=== PATIENT | female | born 1980 | race Caucasian/White ===

== ENCOUNTER 2016-05-10 21:20 | Inpatient (IN) | payer OTHER ==
[2016-05-10] MEDS ORDERED: DINOPROSTONE 10 MG VAGINAL SUPPOSITORY VG ONE (21:46)
[2016-05-10] MEDS ORDERED: ONDANSETRON 4 MG/2 ML VIAL IVPB PRN (22:03)
[2016-05-10] MEDS ORDERED: ACETAMINOPHEN 325 MG TABLET (FP) PO ONE (22:09)
[2016-05-10] MEDS: LACTATED RINGERS SOLUTION 1,000 ML IV SCH (22:15)
--- NOTE | 2016-05-10 22:16 | HP ---
Past Medical History - Admission History of Present Illness: 35 yo female at 38 weeks admitted for labor induction due to pregestational diabetes and gestational hypertension. upon admission patient found to have nausea, vomiting and tachycardia. temp is 99.5 History Source: Patient, Medical Record Limitations to Obtaining History: Other - Past Medical History Cardiovascular: Yes: HTN (gestational) ...: 7 ...EDC by Ketan: 05/24/16 Endocrine: Yes: Diabetes Mellitus - Past Surgical History Hx Myomectomy: No Hx Transabdominal Cerclage: No - Smoking History Smoking history: Never smoked Aproximately how many cigarettes per day: 0 - Alcohol/Substance Use Hx Alcohol Use: No Home Medications - Allergies Allergies/Adverse Reactions: Allergies Allergy/AdvReac Type Severity Reaction Status Date / Time No Known Allergies Allergy Verified 05/11/16 06:48 - Home Medications Home Medications: Ambulatory Orders Insulin Aspart [Novolog] See Protocol SQ AC 03/31/16 Insulin Detemir [Levemir Flextouch] 18 units SQ HS 03/31/16 Pnv95/Ferrous Fumarate/FA [ Vitamin Tablet] 1 each PO DAILY 03/31/16 Review of Systems - Review of Systems Constitutional: reports: Chills, Loss of Appetite, Weakness. denies: Fever Eyes: denies: Blurred Vision, Double Vision Gastrointestinal: reports: Nausea, Vomiting. denies: Abdominal Pain Genitourinary: reports: No Symptoms Endocrine: reports: No Symptoms Hematology/Lymphatic: reports: No Symptoms Psychiatric: reports: No Symptoms Physical Exam - Maternity Constitutional: Yes: Well Nourished, Calm Eyes: Yes: Conjunctiva Clear, EOM Intact HENT: Yes: Atraumatic, Normocephalic Neck: Yes: Supple, Trachea Midline Cardiovascular: Yes: Regular Rate and Rhythm Lungs: Clear to auscultation - Abdominal Exam/OB Number of Fetuses: Single Presentation: Vertex Contractions: No Category: I Decelerations: None - Physical Exam Psychiatric: Yes: Alert, Oriented Problem List - Problems (1) Diabetes in Code(s): O24.919 - UNSP DIABETES MELLITUS IN , UNSPECIFIED TRIMESTER (2) Gestational hypertension Code(s): O13.9 - GESTATIONAL HTN W/O SIGNIFICANT PROTEINURIA, UNSP TRIMESTER (3) Nausea & vomiting Code(s): R11.2 - NAUSEA WITH VOMITING, UNSPECIFIED (4) Tachycardia Code(s): R00.0 - TACHYCARDIA, UNSPECIFIED Assessment/Plan admit to l&d start IV fluids PO tylenol regular diabetic diet - check bgm ac/hs if maternal heart rate normalizes and pt afebrile, to start labor induction with cervidil gbs positive
[2016-05-10 22:29] LABS: BASOPHIL 0.7 % (0-2.0); EOSINOPHIL 0.2 % (0-4.5); MCH 25.7 pg (25.7-33.7); MCHC 33.2 g/dl (32.0-36.0); MEAN CELL VOLUME 77.5 fl (80-96); MEAN PLT VOLUME 10.7 fl (7.5-11.1); NEUTROPHILS 72.6 % (42.8-82.8); PLATELET COUNT 157 K/MM3 (134-434); RDW 15.1 % (11.6-15.6); WHITE BLOOD COUNT 6.8 K/mm3 (4.0-10.0)
[2016-05-10 22:32] VITALS: BMI 43.6
[2016-05-10 22:41] LABS: INR 1.04 (0.82-1.09); PROTHROMBIN TIME (PATIENT) 11.4 SEC (9.98-11.88)
[2016-05-10 22:44] LABS: ACTIVATED PTT 28.1 SECONDS (26.9-34.4)
[2016-05-10] MEDS ORDERED: TUBERCULIN PPD 5 TU/0.1ML SYRINGE (IN PATIENT USE ONLY) ID ONE (23:00)
[2016-05-10 23:28] LABS: ALBUMIN 2.2 g/dl (3.4-5.0); ALK PHOS 154 U/L (45-117); ANION GAP 12 (8-16); BILIRUBIN,TOTAL 0.2 mg/dL (0.2-1.0); CO2 22 mmol/L (21-32); CREATININE 0.5 mg/dL (0.55-1.02); GLUCOSE,RANDOM 83 mg/dL (74-106); SGOT/AST 23 U/L (15-37); SGPT/ALT 17 U/L (12-78); TOT PROT 5.1 g/dl (6.4-8.2)
[2016-05-11] MEDS: LACTATED RINGERS SOLUTION 1,000 ML IV SCH (02:00)
[2016-05-11 07:11] VITALS: BP 133/74; PULSE 116; TEMP 97.8
--- NOTE | 2016-05-11 08:24 | PN ---
Ante-Partal Exam - Subjective Subjective: Patient seen this a.m., now having diarrhea. States she has had these symptoms since Wednesday. Feeling congested, having abdominal pain and diarrhea , no vomiting overnight, currently afebrile. Vital Signs: Vital Signs Temperature 97.8 F 05/11/16 07:00 Pulse Rate 116 H 05/11/16 07:00 Respiratory Rate 20 05/11/16 07:00 Blood Pressure 133/74 05/11/16 07:00 O2 Sat by Pulse Oximetry (%) - Contractions Contractions: No - Exam during Labor Heart Rate: 150 Variability: Moderate Category: I Monitor Accelerations: Present Monitor Decelerations: None Amniotic Membrane Status: Intact Presentation: Vertex - Assessment/Plan Assessment/Plan: Patient with IV hydration last night and still having symptoms of gastroenteritis. Discussed induction with patient at this time - patient's blood glucose levels all WNL and BPs have been WNL. NST reactive, and patient has appt with M on Weds for BPP/ultrasound. Plan to discharge home at this time instead of induce as patient has gastroenteritis, will follow up closely on Weds with BPP/NST. Plan to induce later this week or early next week once patient improves.
--- NOTE | 2016-05-11 12:14 | DS ---
Physical Exam-AUTOMOTIVE MANAGER Vital Signs: Vital Signs Temperature 97.8 F 05/11/16 07:00 Pulse Rate 116 H 05/11/16 07:00 Respiratory Rate 20 05/11/16 07:00 Blood Pressure 133/74 05/11/16 07:00 O2 Sat by Pulse Oximetry (%) Constitutional: Yes: Well Nourished, Calm Eyes: Yes: Conjunctiva Clear, EOM Intact HENT: Yes: Atraumatic, Normocephalic Neck: Yes: Supple, Trachea Midline Cardiovascular: Yes: Regular Rate and Rhythm Respiratory: Yes: Regular, CTA Bilaterally, Cough Gastrointestinal: Yes: Normal Bowel Sounds, Soft, Other (gravid) Psychiatric: Yes: Alert, Oriented Labs: CBC, BMP 05/10/16 22:15 05/10/16 22:55 Delivery, Single - [place] Feeding Plan Initial Plan: Elected not to breastfeed exclusively throughout hospitalization Discharge Summary Reason For Visit: LABOR DELIVERY Procedures: Principal: Admission for IV fluid hydration Hospital Course: Patient arrived to hospital on 05/10/16 for planned cervidil induction due to insulin dependent diabetes and gestational hypertension. Upon arrival to L&D the patient was complaining of nausea/vomiting earlier that day and she was tachycardic up to 130 BPM. The patient was kept overnight for monitoring/ observation and IV fluid hydration. On the morning of 05/11/16 the patient started to have watery diarrhea. The patient was given further IV hydration and a non stress test was performed and the patient was sent home for further PO hydration, rest, bland/BRAT diet and to RTO this Wednesday for evaluation. May do induction later this week or early next week once patient feels improved. Condition: Fair - Instructions Diet, Activity, Other Instructions: Stay hydrated Take tylenol PRN pain/fever call office with fever > 101 make appointment to follow up this Wednesday in the afternoon Referrals: Bonnie Oglesby DO [Staff Physician] - (This wednesday) Disposition: HOME - Home Medications Comprehensive Discharge Medication List: Ambulatory Orders Insulin Aspart [Novolog] See Protocol SQ AC 03/31/16 Insulin Detemir [Levemir Flextouch] 18 units SQ HS 03/31/16 Pnv95/Ferrous Fumarate/FA [ Vitamin Tablet] 1 each PO DAILY 03/31/16
== END 2016-05-11 09:00 | disposition home or self-care (01) | DRG 781 ==
LOC: UNDOADMIN 21:20 → JLDR 21:20
PROVIDERS: ADMIT Obstetrics & Gynecology; ATTEND Obstetrics & Gynecology
DX: O26.893 Other specified pregnancy related conditions, third trimester (principal); R11.2 Nausea with vomiting, unspecified; R00.0 Tachycardia, unspecified; O24.419 Gestational diabetes mellitus in pregnancy, unspecified control; O13.3 Gestational [pregnancy-induced] hypertension without significant proteinuria, third trimester; Z3A.38 38 weeks gestation of pregnancy
CPT/HCPCS: 36415; 80053; 85025; 85610; 85730; 86593; 86850; 86900; 86901

== ENCOUNTER 2016-05-15 13:15 | Inpatient (IN) | payer OTHER ==
[2016-05-15] MEDS ORDERED: BUTORPHANOL TARTRATE 1 MG/ML VIAL IVPUSH ONE (14:30)
[2016-05-15] MEDS ORDERED: PROMETHAZINE HCL 25 MG/1 ML VIAL IVPUSH ONE (14:30)
--- NOTE | 2016-05-15 14:51 | HP ---
Past Medical History - Admission History of Present Illness: 35 yo female at 38.5 weeks gestation here for NST after having BPP and ultrasound at [facility] for IDDM. BPP 09/24 and NST non reactive upon admission and FHTS intermittently tachycardic (maximum baselin to 160x) with non recurrent variable and late decelerations. GModerate variability and occasional accelerations appreciated, but does not meet criteria for reactive NST. complicated by insulin dependent diabetes and obesity. Had echocardiograms and followed with [facility]. BGMs controlled on insulin. EFW today 8lb 6oz > 90%ile. Pt was on for IOL thursday 05/11, but had a cold with fever/ diarrhea/congestion and was discharged home to recover and return for evaluation 05/13. PMH also included fatty liver disease and thyroid nodules (to be evaluated post per endocrine) History Source: Patient, Medical Record Limitations to Obtaining History: No Limitations - Past Medical History Cardiovascular: Yes: HTN (gestational) Gastrointestinal: No: Constipation, Irritable Bowel Disease Hepatobiliary: No: Hepatitis B, Hepatitis C Renal/: No: Renal Failure, Cancer Reproductive: No: Ectopic , Fibroids, PID ...: 7 ...Para: 0 ...Term: 0 ...: 0 ...Spon : 1 ...Induced : 0 ...LMP: 08/18/15 ...EDC by Dates: 05/27/16 ...EDC by Sono: 05/24/16 Heme/Onc: No: Anemia Infectious Disease: No: HIV, MRSA, STD's Psych: No: Anxiety, Bipolar, Depression Endocrine: Yes: Diabetes Mellitus - Past Surgical History Hx Myomectomy: No Hx Transabdominal Cerclage: No Additional Surgical History: VTOP - Smoking History Smoking history: Never smoked Have you smoked in the past 12 months: No Aproximately how many cigarettes per day: 0 - Alcohol/Substance Use Hx Alcohol Use: No History of Substance Use: reports: None - Social History Usual Living Arrangement: Yes: With Spouse ADL: Independent History of Recent Travel: Yes (Was in [facility] approximately 2 months ago. ) Home Medications - Allergies Allergies/Adverse Reactions: Allergies Allergy/AdvReac Type Severity Reaction Status Date / Time No Known Allergies Allergy Verified 05/15/16 14:07 - Home Medications Home Medications: Ambulatory Orders Insulin Aspart [Novolog] See Protocol SQ AC 03/31/16 Insulin Detemir [Levemir Flextouch] 20 units SQ HS 03/31/16 Pnv95/Ferrous Fumarate/FA [ Vitamin Tablet] 1 each PO DAILY 03/31/16 Review of Systems - Review of Systems Constitutional: reports: No Symptoms Eyes: reports: No Symptoms HENT: reports: No Symptoms Neck: reports: No Symptoms Cardiovascular: reports: No Symptoms Respiratory: reports: No Symptoms Gastrointestinal: reports: No Symptoms Genitourinary: reports: No Symptoms Breasts: reports: No Symptoms Reported Musculoskeletal: reports: No Symptoms Integumentary: reports: No Symptoms Neurological: reports: No Symptoms Endocrine: reports: No Symptoms Hematology/Lymphatic: reports: No Symptoms Psychiatric: reports: No Symptoms Physical Exam - Maternity Vital Signs: Vital Signs Temperature 97.5 F L 05/15/16 14:01 Pulse Rate 95 H 05/15/16 14:01 Respiratory Rate 14 05/15/16 14:01 Blood Pressure 123/52 05/15/16 14:01 O2 Sat by Pulse Oximetry (%) Constitutional: Yes: Well Nourished, No Distress, Calm Eyes: Yes: Conjunctiva Clear, EOM Intact HENT: Yes: Atraumatic, Normocephalic Neck: Yes: Supple, Trachea Midline Cardiovascular: Yes: Regular Rate and Rhythm Lungs: Clear to auscultation - Abdominal Exam/OB Number of Fetuses: Single Presentation: Vertex Contractions: Yes Regularity: Irregular Intensity: Unaware Heart Rate (range): 160 Category: II Accelerations: Uniform (o) Decelerations: Late (and variable decelerations) - Vaginal Exam/OB Speculum Exam: No Dilatation (cm): 0 Effacement (%): 0 Amniotic Membrane Status: Intact Presentation: Vertex/Position Station: -3 - Physical Exam Psychiatric: Yes: Alert, Oriented Hemorrhage Risk Assessment - Risk Factors Medium Risk Factors: Yes: Obesity (BMI >40) High Risk Factors: Yes: None Risk Score: 1 Risk Level: Medium Risk Problem List - Problems (1) Diabetes in Code(s): O24.919 - UNSP DIABETES MELLITUS IN , UNSPECIFIED TRIMESTER Qualifiers: Gestational diabetes mellitus control: insulin-controlled Trimester: third trimester (2) Term Code(s): Z34.80 - ENCOUNTER FOR SUPRVSN OF NORMAL , UNSP TRIMESTER (3) H/O biophysical profile with non-stress test Code(s): Z92.89 - PERSONAL HISTORY OF OTHER MEDICAL TREATMENT Assessment/Plan 35 y/o with SIUP at 38.5 weeks gestation with IDDM, gHTN, obesity, and 6/ 10 BPP admitted to L&D - FHTS non reactive, moderate variability noted but non recurrent late and variable decelerations also appreciated and tachycardia now to the 170s noted - IDDM - BG 113 on admission. Pt ate breakfast this a.m., nothing this afternoon. Continue BGMs AC/HS until plan for delivery made. - Plan for delivery - discussed induction vs. section with patient. Due to heart rate tracing, it is unclear if fetus will tolerate labor. Discussed possibly doing MORTGAGE OR LOAN UNDERWRITER before starting induction or moving straight to delivery. R/B/A of both options discussed including starting IOL and needing to do for heart rate reasons. - Recommend primary section due to tachycardia with non reactive tracing remote from delivery.
[2016-05-15 15:00] VITALS: BMI 43.7
[2016-05-15] MEDS ORDERED: TUBERCULIN PPD 5 TU/0.1ML SYRINGE (IN PATIENT USE ONLY) ID ONE (15:00)
[2016-05-15 15:37] LABS: BASOPHIL 0.2 % (0-2.0); EOSINOPHIL 0.5 % (0-4.5); MCH 25.3 pg (25.7-33.7); MCHC 32.5 g/dl (32.0-36.0); MEAN CELL VOLUME 77.7 fl (80-96); MEAN PLT VOLUME 10.8 fl (7.5-11.1); NEUTROPHILS 50.9 % (42.8-82.8); PLATELET COUNT 197 K/MM3 (134-434); RDW 14.9 % (11.6-15.6); WHITE BLOOD COUNT 8.5 K/mm3 (4.0-10.0)
[2016-05-15 15:51] LABS: INR 0.96 (0.82-1.09); PROTHROMBIN TIME (PATIENT) 10.5 SEC (9.98-11.88)
[2016-05-15 15:53] LABS: ACTIVATED PTT 31.1 SECONDS (26.9-34.4)
[2016-05-15 16:05] LABS: URINE APPEARANCE SLCLOUDY; URINE BILIRUBIN NEGATIVE (NEGATIVE); URINE BLOOD NEGATIVE (NEGATIVE); URINE COLOR DKYELLOW; URINE GLUCOSE (UA) NEGATIVE (NEGATIVE); URINE KETONE NEGATIVE (NEGATIVE); URINE NITRITE NEGATIVE (NEGATIVE); URINE PROTEIN NEGATIVE (NEGATIVE); URINE UROBILINOGEN NEGATIVE E.U./dl (0.2-1.0)
[2016-05-15 16:10] LABS: CALCIUM 8.3 mg/dL (8.5-10.1); CREATININE 0.6 mg/dL (0.55-1.02)
--- NOTE | 2016-05-15 16:18 | PN ---
Progress Note (short form) - Note Progress Note: After further discussion with patient, FHTs still tachycardic intermittently with nonrecurrent late decelerations. Offered induction vs. Primary and after discussing R/B/A, plan will be for primary section. Anesthesia and nursing aware. Problem List - Problems (1) Diabetes in Code(s): O24.919 - UNSP DIABETES MELLITUS IN , UNSPECIFIED TRIMESTER Qualifiers: Gestational diabetes mellitus control: insulin-controlled Trimester: third trimester (2) Term Code(s): Z34.80 - ENCOUNTER FOR SUPRVSN OF NORMAL , UNSP TRIMESTER (3) H/O biophysical profile with non-stress test Code(s): Z92.89 - PERSONAL HISTORY OF OTHER MEDICAL TREATMENT
[2016-05-15 16:20] LABS: URINE LEUK ESTERASE TRACE (NEGATIVE)
[2016-05-15 16:31] LABS: URINE BACTERIA FEW /hpf (NONE SEEN); URINE MUCUS RARE; URINE RBC 1 /hpf (0-3); URINE WBC 13 /hpf (3-5)
[2016-05-15] MEDS ORDERED: METHYLERGONOVINE MALEATE 0.2 MG/1 ML AMP IM PRN (17:15)
[2016-05-15] MEDS ORDERED: IBUPROFEN 600 MG TABLET (FP) PO PRN (17:15)
[2016-05-15] MEDS ORDERED: oxyCODONE HCL 5 MG TABLET PO PRN (17:19)
--- NOTE | 2016-05-15 17:45 | OP ---
Operative Note - Note: Operative Date: 05/15/16 Pre-Operative Diagnosis: SIUP at 38.5 weeks, insulin dependent diabetes, biophysical profile of 6/10 and tachycardia with decelerations remote from delivery Operation: primary section Findings: normal bilateral tubes and ovaries Post-Operative Diagnosis: Same as Pre-op Surgeon: Bonnie Oglesby Guide Excursion: Johnathan Roe Anesthesiologist/PARK NATURALIST: Efren Longoria Anesthesia: Spinal Specimens Removed: placenta Estimated Blood Loss (mls): 800 Operative Report Dictated: Yes
[2016-05-15] MEDS: OXYTOCIN 20 UNITS in 0.9% NS 1,000 ML IV SCH ×2 (18:15→22:28)
[2016-05-15] MEDS: CEFAZOLIN 1 GM/D5W 50 ML IVPB SCH (18:16)
[2016-05-15] MEDS ORDERED: ACETAMINOPHEN 1000 MG/100 ML VIAL (NON FORMULARY) IVPB ONE (18:18)
[2016-05-15] MEDS ORDERED: IBUPROFEN 800 MG/8 ML IJ IVPB PRN (18:26)
--- NOTE | 2016-05-15 18:26 | PN ---
Delivery - Delivery Section: Primary, Low Flap Transverse Type of Anesthesia: Spinal Episiotomy/Laceration: None EBL (cc): 800 Delivery, Single - Stages of Labor Date of Delivery: 05/15/16 Time of Delivery: 16:30 Date Placenta Delivered: 05/15/16 Time Placenta Delivered: 16:31 Placenta: Yes: Manual Removal - Condition of [place] Diving Teacher/Farm Contractor Buyer Present: Yes Name: Earlene Escobar Infant Gender: Female Weight: 8 lb 13 oz Position: Left, OT Total Hours ROM (Hrs/Mins): 2M - 1 Minute Total Score: 9 5 Minutes Total Score: 9 - Feeding Plan Initial Plan: Exclusive throughout hospitalization Remarks - Remarks Remarks: Primary for BPP 6/10, tachycardia and non recurrent decelerations but remote from delivery. Uncomplicated c section (see dictation) mom stable baby to well baby nursery sponge needle and instrument count correct after case
[2016-05-15] MEDS: INSULIN SLIDING SCALE (NOVOLOG) 1 VIAL SQ SCH (22:09)
[2016-05-15] MEDS: ONDANSETRON 4 MG/2 ML VIAL IVPB PRN (22:28)
[2016-05-16] MEDS: CEFAZOLIN 1 GM/D5W 50 ML IVPB SCH ×2 (01:45→09:11)
[2016-05-16] MEDS: INSULIN SLIDING SCALE (NOVOLOG) 1 VIAL SQ SCH ×4 (06:35→21:42)
[2016-05-16 07:30] LABS: BASOPHIL 0.2 % (0-2.0); EOSINOPHIL 0.1 % (0-4.5); MCH 25.7 pg (25.7-33.7); MCHC 33.2 g/dl (32.0-36.0); MEAN CELL VOLUME 77.2 fl (80-96); MEAN PLT VOLUME 10.3 fl (7.5-11.1); NEUTROPHILS 69.3 % (42.8-82.8); PLATELET COUNT 157 K/MM3 (134-434); RDW 14.7 % (11.6-15.6); WHITE BLOOD COUNT 12.2 K/mm3 (4.0-10.0)
--- NOTE | 2016-05-16 08:34 | PN ---
Progress Note, Physician Chief Complaint: s/p section day one she offers no complaints History of Present Illness: day post c/s incision dressing is dry patient offers no complaints. - Current Medication List Current Medications: Active Medications Acetaminophen (Tylenol -) 650 mg PO Q4H PRN PRN Reason: FEVER OR PAIN Bisacodyl (Dulcolax Suppository -) 10 mg RC PRN PRN PRN Reason: CONSTIPATION Diphenhydramine HCl (Benadryl Injection -) 25 mg IVPUSH Q4H PRN PRN Reason: Pruritis Enoxaparin Sodium (Lovenox -) 40 mg SQ DAILY [facility] Cefazolin Sodium (Ancef 1 Gm Premixed Ivpb -) 50 mls @ 100 mls/hr IVPB Q8H-IV BRETT Stop: 05/16/16 17:59 Last Admin: 05/16/16 01:45 Dose: 100 mls/hr Oxytocin/Sodium Chloride (Normal Saline+20 Units Oxytocin -) 1,000 mls @ 125 mls/hr IV ASDIR [facility] Last Admin: 05/15/16 22:28 Dose: 125 mls/hr Ibuprofen (Motrin -) 600 mg PO Q4H PRN PRN Reason: PAIN Ibuprofen (Caldolor Injection -) 800 mg IVPB Q6H PRN PRN Reason: FEVER Last Admin: 05/16/16 07:53 Dose: 800 mg Insulin Aspart (Novolog Vial Sliding Scale -) 1 vial SQ ACHS BRETT PRN Reason: Protocol Last Admin: 05/16/16 06:35 Dose: Not Given Methylergonovine Maleate (Methergine Injection -) 0.2 mg IM Q4H PRN PRN Reason: Excessive Bleeding (L&D) Last Admin: 05/15/16 19:20 Dose: 0.2 mg Oxycodone HCl (Roxicodone -) 10 mg PO Q4H PRN PRN Reason: PAIN LEVEL 6-10 Oxycodone HCl (Roxicodone -) 5 mg PO Q4H PRN PRN Reason: PAIN Multivit/Folic Acid/Iron ( Vitamins (Sjr) -) 1 tab PO DAILY [facility] Simethicone (Mylicon -) 80 mg PO Q4H PRN PRN Reason: GAS - Objective Vital Signs: Vital Signs Temperature 99.3 F 05/16/16 05:47 Pulse Rate 96 H 05/16/16 05:47 Respiratory Rate 18 05/16/16 06:35 Blood Pressure 128/69 05/16/16 05:47 O2 Sat by Pulse Oximetry (%) 99 05/15/16 18:05 Constitutional: Yes: Well Nourished, No Distress, Calm Eyes: Yes: WNL, Conjunctiva Clear HENT: Yes: WNL, Atraumatic, Normocephalic Neck: Yes: WNL, Supple Cardiovascular: Yes: WNL, Regular Rate and Rhythm Respiratory: Yes: WNL, Regular Gastrointestinal: Yes: WNL, Normal Bowel Sounds ...Rectal Exam: Yes: WNL Genitourinary: Yes: WNL Breast(s): Yes: WNL Musculoskeletal: Yes: WNL Extremities: Yes: WNL Edema: No Peripheral Pulses WNL: Yes Integumentary: Yes: WNL Wound/Incision: Yes: Dressing Dry and Intact Neurological: Yes: WNL ...Motor Strength: WNL Psychiatric: Yes: WNL, Alert Labs: CBC, BMP 05/16/16 06:15 05/15/16 15:00 INR, PTT INR 0.96 (0.82-1.09) 05/15/16 15:00 Assessment/Plan anemia post section condition stable repeat CBC in am continue post op care
[2016-05-16] MEDS: ENOXAPARIN NA (PORCINE) 40 MG/0.4 ML DISP.SYRIN SQ SCH (09:09)
[2016-05-16] MEDS: OXYTOCIN 20 UNITS in 0.9% NS 1,000 ML IV SCH (09:17)
--- NOTE | 2016-05-16 10:45 | CONSULT ---
Consult Consult Specialty:: Endocrinology Referred by:: Dr Oglesby Reason for Consultation:: DM - History of Present Illness Chief Complaint: DM History of Present Illness: This is a 35 yo female wit h/o thyroid nodule, DM diagnosed about 2 years ago and started on Victoza which she took for about 2 months and on diet after that, on Insulin after she conceived, obesity who is s/p C section is referred for evaluation of DM. Pt feels tired. BGM s/p delivery of baby has been normal without Insulin. - History Source History Provided By: Patient, Medical Record - Past Medical History Cardio/Vascular: Yes: HTN (gestational) Gastrointestinal: No: Constipation, Irritable Bowel Disease Hepatobiliary: No: Hepatitis B, Hepatitis C Renal/: No: Renal Failure, Cancer Infectious Disease: No: HIV, MRSA, STD's Psych: No: Anxiety, Bipolar, Depression Endocrine: Yes: Diabetes Mellitus - Past Surgical History Additional Surgical History: VTOP - Alcohol/Substance Use Hx Alcohol Use: No History of Substance Use: reports: None - Smoking History Smoking history: Never smoked Have you smoked in the past 12 months: No Aproximately how many cigarettes per day: 0 - Social History ADL: Independent History of Recent Travel: Yes (Was in [place] approximately 2 months ago. ) Home Medications - Allergies Allergies/Adverse Reactions: Allergies Allergy/AdvReac Type Severity Reaction Status Date / Time No Known Allergies Allergy Verified 05/15/16 14:07 - Home Medications Home Medications: Ambulatory Orders Insulin Aspart [Novolog] See Protocol SQ AC 03/31/16 Insulin Detemir [Levemir Flextouch] 20 units SQ HS 03/31/16 Pnv95/Ferrous Fumarate/FA [ Vitamin Tablet] 1 each PO DAILY 03/31/16 Family Disease History - Family Disease History Family Disease History: Diabetes: Mother (Prediabetes), Brother Review of Systems - Review of Systems Constitutional: reports: Weakness Eyes: reports: No Symptoms HENT: reports: No Symptoms Neck: reports: No Symptoms Cardiovascular: reports: No Symptoms Respiratory: reports: No Symptoms Gastrointestinal: reports: No Symptoms Genitourinary: reports: No Symptoms Neurological: reports: No Symptoms Endocrine: reports: No Symptoms Physical Exam Vital Signs: Vital Signs Temperature 99.3 F 05/16/16 05:47 Pulse Rate 96 H 05/16/16 05:47 Respiratory Rate 20 05/16/16 08:00 Blood Pressure 128/69 05/16/16 05:47 O2 Sat by Pulse Oximetry (%) 99 05/15/16 18:05 Constitutional: Yes: No Distress, Calm Eyes: Yes: Conjunctiva Clear, EOM Intact HENT: Yes: Atraumatic, Normocephalic Neck: Yes: Supple, Trachea Midline Cardiovascular: Yes: Regular Rate and Rhythm Respiratory: Yes: Regular, CTA Bilaterally Gastrointestinal: Yes: Normal Bowel Sounds, Soft Extremities: Yes: WNL Edema: No Neurological: Yes: Alert, Oriented Labs: CBC, BMP 05/16/16 06:15 05/15/16 15:00 Assessment/Plan A/P S/P C Section DM Thyroid nodule: BGM QACHS Novolog SS coverage Pt to come for f/u in 2 to 3 weeks to get sonogram of thyroid and to evaluate need for continued treatment of her Diabetes. To call of BGM >150 at home. Will F/U Dr Ruiz covering until 05/19/2016
[2016-05-16] MEDS: ACETAMINOPHEN 325 MG TABLET (FP) PO PRN ×3 (11:33→21:51)
[2016-05-16] MEDS: SIMETHICONE 80 MG TAB.CHEW (FP) PO PRN ×2 (11:33→16:45)
--- NOTE | 2016-05-16 12:30 | PN ---
Progress Note (short form) - Note Progress Note: Anesthesiology post-op POD #1 s/p C/S under spinal. Pt. feels well, able to move legs, denies h/a. Pain under control. VSS, no apparent anesthesia-related complications.
[2016-05-16] MEDS: PRENATAL VITAMINS W/ FOLIC ACID TABLET (FP) PO SCH (13:38)
[2016-05-16] MEDS: FERROUS SO4 325 MG TABLET (FP) PO SCH ×2 (13:38→18:04)
[2016-05-16] MEDS ORDERED: ONDANSETRON 4 MG/2 ML VIAL ONE (15:26)
[2016-05-16] MEDS: ONDANSETRON 4 MG/2 ML VIAL IVPB PRN (15:29)
[2016-05-16] MEDS: IBUPROFEN 600 MG TABLET (FP) PO PRN (16:48)
[2016-05-16] MEDS ORDERED: BISACODYL 10 MG SUPP.RECT RC PRN (17:15)
[2016-05-16] MEDS ORDERED: ONDANSETRON 4 MG/2 ML VIAL IVPB PRN (21:03)
[2016-05-16] MEDS ORDERED: LABETALOL HCL 200 MG TABLET (FP) PO ONE (21:04)
[2016-05-16] MEDS: oxyCODONE HCL 5 MG TABLET PO PRN (21:41)
[2016-05-17] MEDS: SIMETHICONE 80 MG TAB.CHEW (FP) PO PRN ×2 (05:39→09:52)
[2016-05-17] MEDS: oxyCODONE HCL 5 MG TABLET PO PRN ×3 (05:40→15:52)
[2016-05-17] MEDS: ACETAMINOPHEN 325 MG TABLET (FP) PO PRN ×4 (05:41→22:14)
[2016-05-17] MEDS: INSULIN SLIDING SCALE (NOVOLOG) 1 VIAL SQ SCH ×4 (06:41→22:16)
[2016-05-17] MEDS: FERROUS SO4 325 MG TABLET (FP) PO SCH ×2 (08:15→17:01)
--- NOTE | 2016-05-17 08:21 | PN ---
Post Progress Note - Subjective Subjective: 35 yo Para 1 status post primary , seen and evaluated. She c/o incision pain. She's lying in bed. Post Day: 2 Type of Delivery: Primary C/S Vital Signs: Vital Signs Temperature 98.2 F 05/17/16 06:00 Pulse Rate 97 H 05/17/16 06:00 Respiratory Rate 18 05/17/16 06:00 Blood Pressure 133/79 05/17/16 06:00 O2 Sat by Pulse Oximetry (%) 99 05/15/16 18:05 Breast Exam: Yes: Soft Uterus: Yes: Fundus Firm Incision: Yes: Other (Sterile strips in place) Abdomen/GI: Yes: Abdomen soft Lochia: Yes: Rubra Lochia, amount: Small Extremities: Yes: Calves non-tender Perineum: Yes: Intact - Labs Labs: CBC WBC 12.2 K/mm3 (4.0-10.0) H D 05/16/16 06:15 RBC 3.64 M/mm3 (3.60-5.2) 05/16/16 06:15 Hgb 9.3 GM/dL (10.7-15.3) L D 05/16/16 06:15 Hct 28.1 % (32.4-45.2) L D 05/16/16 06:15 MCV 77.2 fl (80-96) L 05/16/16 06:15 MCHC 33.2 g/dl (32.0-36.0) 05/16/16 06:15 RDW 14.7 % (11.6-15.6) 05/16/16 06:15 Plt Count 157 K/MM3 (134-434) D 05/16/16 06:15 MPV 10.3 fl (7.5-11.1) 05/16/16 06:15 Neutrophils % 69.3 % (42.8-82.8) D 05/16/16 06:15 Lymphocytes % 24.0 % (8-40) D 05/16/16 06:15 Monocytes % 6.4 % (3.8-10.2) 05/16/16 06:15 Eosinophils % 0.1 % (0-4.5) 05/16/16 06:15 Basophils % 0.2 % (0-2.0) 05/16/16 06:15 Problem List - Problems (1) Status post primary low transverse section Code(s): Z98.89 - OTHER SPECIFIED POSTPROCEDURAL STATES * DO NOT USE * Assessment/Plan Status post primary Stable Analgesia PRN pain Continue routine Post op care
[2016-05-17] MEDS: ENOXAPARIN NA (PORCINE) 40 MG/0.4 ML DISP.SYRIN SQ SCH (09:52)
[2016-05-17] MEDS: PRENATAL VITAMINS W/ FOLIC ACID TABLET (FP) PO SCH (09:52)
[2016-05-18] MEDS: INSULIN SLIDING SCALE (NOVOLOG) 1 VIAL SQ SCH ×4 (06:09→22:00)
[2016-05-18 07:24] LABS: MCH 25.7 pg (25.7-33.7); MCHC 33.1 g/dl (32.0-36.0); MEAN CELL VOLUME 77.5 fl (80-96); MEAN PLT VOLUME 9.7 fl (7.5-11.1); PLATELET COUNT 223 K/MM3 (134-434); RDW 14.8 % (11.6-15.6); WHITE BLOOD COUNT 14.1 K/mm3 (4.0-10.0)
[2016-05-18] MEDS: ACETAMINOPHEN 325 MG TABLET (FP) PO PRN ×2 (07:29→17:38)
[2016-05-18] MEDS: oxyCODONE HCL 5 MG TABLET PO PRN ×2 (07:30→18:19)
[2016-05-18] MEDS: FERROUS SO4 325 MG TABLET (FP) PO SCH ×2 (07:32→17:36)
[2016-05-18] MEDS ORDERED: DIPHTH,PERTUSS(ACELL),TET 0.5 ML DISP.SYRIN IM ONE (10:00)
[2016-05-18] MEDS: ENOXAPARIN NA (PORCINE) 40 MG/0.4 ML DISP.SYRIN SQ SCH (10:41)
[2016-05-18] MEDS: PRENATAL VITAMINS W/ FOLIC ACID TABLET (FP) PO SCH (10:42)
--- NOTE | 2016-05-18 11:33 | OP ---
DATE OF OPERATION: 05/15/2016 PREOPERATIVE DIAGNOSIS: Single intrauterine at 38.5 weeks, insulin-dependent diabetes, biophysical profile of 6 out of 10, and tachycardia with decelerations remote from delivery. POSTOPERATIVE DIAGNOSIS: Same with light meconium stained amniotic fluid. PROCEDURE: Primary low transverse section. SURGEON: Bonnie Oglesby MD ASSOCIATE STORE MANAGER: NIELS Montalvo ANESTHESIA: Spinal. ANESTHESIOLOGIST: Efren Longoria MD ESTIMATED BLOOD LOSS: 800 mL. SPECIMENS: Included placenta sent to Pathology for evaluation. COMPLICATIONS: None. COUNTS: Sponge, needle, and instrument counts correct. DISPOSITION: Stable. FINDINGS: Included normal bilateral tubes and ovaries. BRIEF HISTORY AND PROCEDURE: Patient is a 35-year-old female who was who had a single intrauterine of 38.5 weeks who was the seen in the maternal medicine office for a biophysical profile and ultrasound secondary to her known diagnosis of insulin-dependent diabetes. The patient was sent to labor and delivery for a non-stress test as her biophysical profile was a 6 out of 10, and non- stress test was non-reactive. The heart tones were tachycardic, and the patient was having non-recurrent late and variable decelerations on the monitor. After review of the heart rate tracing and review of the patients medical history and indications, the plan was made for delivery. Discussion was had with the patient regarding induction of labor versus primary section and secondary to the tachycardia with decelerations that was not resolved with resuscitative measures such as IV fluids and position changes, and the patient being remote from delivery as the cervix was closed, the plan was made for a primary section. Risks, benefits, and alternatives to the plan were explained to the patient, and the patient consented to a primary section at this time. Patient was then taken back to the operating room. She was given spinal anesthesia by Dr. Efren Longoria without incident. She was placed on the operating room table in the dorsal supine position. A Haque catheter was placed under sterile conditions. She was then prepped and draped in the usual sterile fashion, and a hard time- out was performed. A Pfannenstiel skin incision was created in the skin with the scalpel and carried to the underlying layer of rectus fascia with the Bovie. The fascia was incised on either side of the midline with the Bovie, and fascial incision was carried in the superior lateral direction with the Bovie. The superior aspect of the fascia was tented upwards, and the underlying layer of rectus muscle was dissected off with the Bovie. The same was repeated on the inferior aspect of the fascia. The musculature was bluntly. The peritoneum was entered bluntly and carefully dissected to allow for adequate room for delivery. A transverse incision was created on the uterus. Then, the incision was carried in a superior lateral direction bluntly. The was then delivered from the left occiput transverse position without difficulty. Bilateral shoulders and the remainder of the delivered without difficulty. The cord was clamped twice and cut in between. The infant was taken over to the warmer to be assessed by the neonatology staff, where the baby received scores of 9 and 9. The placenta was then delivered manually, and the uterus was exteriorized from the abdomen and cleared of all membranes and debris with a dry lap sponge. The hysterotomy was reapproximated using 1 Vicryl in a running locked fashion in a double-layer closure, and hemostasis was achieved with compression sutures using 0 Biosyn suture as needed. The uterus was placed back into the abdomen. Bilateral gutters were inspected and cleared of all blood clot and debris. Bilateral tubes and ovaries were noted to be normal. The hysterotomy was then reapproximated and was reexamined and noted to be hemostatic. The peritoneum was reapproximated in a running fashion. The musculature was reapproximated with 3 interrupted sutures. The fascia was reapproximated using 1 Vicryl in a running fashion, and the subcutaneous tissue was copiously irrigated and reapproximated using Biosyn suture, and the skin was reapproximated using 3-0 Vicryl in a subcuticular fashion. Steri-Strips were applied. Sponge, needle, and instrument counts were reported to be correct. The patient tolerated the procedure well and was recovering in stable condition at the time of this dictation. BONNIE OGLESBY DO /[id number] MTDD
--- NOTE | 2016-05-18 11:37 | PN ---
Post Progress Note - Subjective Subjective: Pt seen/evaluated today. States she is feeling much better than over the weekend. Was having gas pains and some nausea over weekend, but now is tolerating diet, ambulating, passing flatus and voiding. BGMs WNL. Denies CAVAZOS/ CP/SOB/F/C. Denies dizzines. Anemic, Hgb 8.0 this a.m. Type of Delivery: Primary C/S Vital Signs: Vital Signs Temperature 97.0 F L 05/18/16 09:35 Pulse Rate 105 H 05/18/16 09:35 Respiratory Rate 20 05/18/16 09:35 Blood Pressure 135/85 05/18/16 09:35 O2 Sat by Pulse Oximetry (%) 99 05/15/16 18:05 Breast Exam: Yes: Soft Uterus: Yes: Fundus below umbilicus Incision: Yes: Sutures intact Abdomen/GI: Yes: Abdomen soft, Passing flatus, Tolerating PO. No: Abdominal Distention, Tender Lochia: Yes: Rubra Lochia, amount: Small Extremities: Yes: Calves non-tender, Edema (trace LE edema) Perineum: Yes: Intact Activity: Ambulating - Labs Labs: CBC WBC 14.1 K/mm3 (4.0-10.0) H 05/18/16 05:30 RBC 3.12 M/mm3 (3.60-5.2) L 05/18/16 05:30 Hgb 8.0 GM/dL (10.7-15.3) L D 05/18/16 05:30 Hct 24.2 % (32.4-45.2) L 05/18/16 05:30 MCV 77.5 fl (80-96) L 05/18/16 05:30 MCHC 33.1 g/dl (32.0-36.0) 05/18/16 05:30 RDW 14.8 % (11.6-15.6) 05/18/16 05:30 Plt Count 223 K/MM3 (134-434) D 05/18/16 05:30 MPV 9.7 fl (7.5-11.1) 05/18/16 05:30 Neutrophils % 68.0 % (42.8-82.8) 05/18/16 05:30 Lymphocytes % 21.0 % (8-40) 05/18/16 05:30 Monocytes % 9.0 % (3.8-10.2) 05/18/16 05:30 Eosinophils % 1.0 % (0-4.5) D 05/18/16 05:30 Basophils % 0.2 % (0-2.0) 05/16/16 06:15 Myelocytes 1 % (0-2) 05/18/16 05:30 Differential Comment Manual diff done 05/18/16 05:30 Problem List - Problems (1) Diabetes in Code(s): O24.919 - UNSP DIABETES MELLITUS IN , UNSPECIFIED TRIMESTER Qualifiers: Gestational diabetes mellitus control: insulin-controlled Trimester: third trimester (2) Term Code(s): Z34.80 - ENCOUNTER FOR SUPRVSN OF NORMAL , UNSP TRIMESTER (3) H/O biophysical profile with non-stress test Code(s): Z92.89 - PERSONAL HISTORY OF OTHER MEDICAL TREATMENT Assessment/Plan 35 y/o post day 2 from primary section, also with IDDM - Afebrile. Some tachycardia, likely due to anemia. Will monitor. - Hgb 8.0, anemia, pt asymptomatic. Continue PO iron and vitamins. Recheck in a.m. if stable ok for d/c home - IDDM - BGs WNL post delivery with just SSI ordered, s/p endocrine consult. Continue BGM checks AC/HS and SSI as needed - to f/u with endocrine upon discharge - Post - continue regular diet, PO pain meds, ambulation, routine care
[2016-05-18] MEDS: IBUPROFEN 600 MG TABLET (FP) PO PRN (17:37)
[2016-05-18] MEDS ORDERED: oxyCODONE HCL 5 MG TABLET ONE (18:17)
[2016-05-18] MEDS: OXYTOCIN 20 UNITS in 0.9% NS 1,000 ML IV SCH (19:45)
[2016-05-18] MEDS ORDERED: OXYCODONE/APAP 5/325MG COMBO TABLET PO PRN (20:03)
[2016-05-18] MEDS ORDERED: ACETAMINOPHEN 325 MG TABLET (FP) PO PRN (20:11)
[2016-05-18] MEDS ORDERED: oxyCODONE HCL 5 MG TABLET PO PRN (20:11)
[2016-05-19] MEDS: SIMETHICONE 80 MG TAB.CHEW (FP) PO PRN (05:15)
[2016-05-19] MEDS: IBUPROFEN 600 MG TABLET (FP) PO PRN (05:15)
[2016-05-19] MEDS: INSULIN SLIDING SCALE (NOVOLOG) 1 VIAL SQ SCH (06:10)
[2016-05-19 07:24] LABS: MCH 25.9 pg (25.7-33.7); MCHC 33.6 g/dl (32.0-36.0); MEAN CELL VOLUME 77.2 fl (80-96); MEAN PLT VOLUME 8.9 fl (7.5-11.1); PLATELET COUNT 290 K/MM3 (134-434); RDW 14.9 % (11.6-15.6); WHITE BLOOD COUNT 11.6 K/mm3 (4.0-10.0)
[2016-05-19] MEDS: FERROUS SO4 325 MG TABLET (FP) PO SCH (08:00)
--- NOTE | 2016-05-19 08:00 | DS ---
Physical Exam-PARTS CONTROL CLERK Vital Signs: Vital Signs Temperature 98.8 F 05/18/16 22:00 Pulse Rate 90 05/18/16 22:00 Respiratory Rate 18 05/18/16 22:00 Blood Pressure 123/71 05/18/16 22:00 O2 Sat by Pulse Oximetry (%) 99 05/15/16 18:05 Constitutional: Yes: Well Nourished Eyes: Yes: Conjunctiva Clear HENT: Yes: Atraumatic Neck: Yes: Supple, Trachea Midline Cardiovascular: Yes: Regular Rate and Rhythm Respiratory: Yes: Regular, CTA Bilaterally Gastrointestinal: Yes: Normal Bowel Sounds External Genitalia: Yes: Normal Vaginal Exam: Yes: Normal Cervix: Yes: Normal Uterus: Yes: Firm Wound/Incision: Yes: Steri Strips (in place) Neurological: Yes: Alert, Oriented ...Motor Strength: WNL Psychiatric: Yes: Alert, Oriented Labs: CBC, BMP 05/19/16 06:45 05/15/16 15:00 Delivery - Delivery Section: Primary, Low Flap Transverse Type of Anesthesia: Spinal Episiotomy/Laceration: None EBL (cc): 800 Delivery, Single - Stages of Labor Date of Delivery: 05/15/16 Time of Delivery: 16:30 Time Placenta Delivered: 16:31 Placenta: Yes: Manual Removal - Condition of Infant Commercial Property Administrator/Health Education Coordinator Present: Yes Name: Earlene Escobar Infant Gender: Female Weight: 8 lb 13 oz Position: Left, OT Total Hours ROM (Hrs/Mins): 2M - 1 Minute Total Score: 9 5 Minutes Total Score: 9 - Feeding Plan Initial Plan: Exclusive throughout hospitalization Discharge Summary Reason For Visit: INDUCTION OF LABOR Current Active Problems H/O biophysical profile with non-stress test (Acute) Status post primary low transverse section (Acute) Term (Acute) Procedures: Principal: Low Transverse Hospital Course: Routine Post op care Condition: Good - Instructions Diet, Activity, Other Instructions: Physical activity Resume your normal everyday activity as tolerated but no heavy lifting or strenuous exercise until seen by your surgeon. You may walk unlimited amounts and climb stairs. You may resume driving the car when you feel safe and comfortable behind the wheel - usually in about 2 weeks. No sexual activity as instructed for 6 weeks. Wound care If you have stitches, they will dissolve on their own. Do not attempt to remove them at home. You may shower, no soaking in tubs/baths/pools for 6 weeks. Diet There are no dietary restrictions. Eat healthy, high-fiber foods. Drink 6 to 8 glasses of liquid each day. This will assist in keeping your bowels regular. Pain management You may take Tylenol or Ibuprofen for mild pain, a prescription for narcotic pain medication will be sent to your pharmacy to be taken as directed for severe pain. Call MD for any of the following: Severe pain not relieved by medication Fever of 101 or higher Excessive bleeding or drainage on dressing Inability to urinate Referrals: Bonnie Oglesby DO [Staff Physician] - 1 Week Disposition: HOME - Home Medications Comprehensive Discharge Medication List: Ambulatory Orders Insulin Aspart [Novolog] See Protocol SQ AC 03/31/16 Insulin Detemir [Levemir Flextouch] 20 units SQ HS 03/31/16 Pnv95/Ferrous Fumarate/FA [ Vitamin Tablet] 1 each PO DAILY 03/31/16 Oxycodone HCl/Acetaminophen [Percocet 5-325 mg Tablet -] 1 tab PO Q4H #30 tablet MDD 6 05/17/16
[2016-05-19 09:24] LABS: METAMYELOCYTE 3 % (0-2)
[2016-05-19 10:07] VITALS: BP 143/89; PULSE 88; TEMP 98.4
[2016-05-19] MEDS: PRENATAL VITAMINS W/ FOLIC ACID TABLET (FP) PO SCH (10:28)
[2016-05-19] MEDS: ENOXAPARIN NA (PORCINE) 40 MG/0.4 ML DISP.SYRIN SQ SCH (10:28)
--- NOTE | 2016-05-20 13:48 | PATH ---
Surgical Pathology Report Patient Name: RICKEY THOMAS Med. Rec. #: [id number] /Age/Gender: 1980 (Age: 35) / F Account: [id number] Location: [facility] OBS/SECURITY TEST ENGINEER Taken: 05/15/2016 Received: 05/18/2016 Reported: 05/20/2016 Physicians: Bonnie Oglesby M.D. Specimen(s) Received PLACENTA Clinical History Insulin-dependent diabetic type II , 1SPAB, 5 VTOPs Nonreassuring heart rate Final Diagnosis PLACENTA, DELIVERY: FOCALLY DISRUPTED THIRD TRIMESTER PLACENTA WITH INTERVILLOUS FIBRIN DEPOSITION, THREE VESSEL UMBILICAL CORD AND UNREMARKABLE PLACENTAL MEMBRANES. Electronically Signed Germain Givens M.D. Gross Description The specimen is received fresh labeled placenta and is a 596 gram, 20.0 x 19.5 x 2.5 cm. placenta with attached membranes and umbilical cord. The attached membranes are berg, translucent with focal opacities and insert marginally. The umbilical cord measures 41 cm. in length and averages 1.1 cm. in diameter. The cord inserts eccentrically, 4 cm. to the nearest margin. No true knots or strictures are identified. Cut surface of the umbilical cord reveals 3 vessels. The surface is connell blue with moderate fibrin deposition and appropriate caliber vessels. The maternal surface is red-brown with focal defects. Sectioning reveals red-brown, spongy parenchyma. No lesions are identified. Graduate Engineer sections are submitted in three cassettes as follows: 1- membrane rolls and umbilical cord; 2-3- full thickness sections of placenta. 05/19/2016 [facility]05/19/2016
== END 2016-05-19 11:30 | disposition home or self-care (01) | DRG 765 ==
LOC: JDEL 13:15 → JLDR 14:30 → J3W 20:25
PROVIDERS: ADMIT Obstetrics & Gynecology; ATTEND Obstetrics & Gynecology
PROC: 10D00Z1 Extraction of Products of Conception, Low, Open Approach (ICD-10-PCS; principal; 2016-05-15)
DX: O75.0 Maternal distress during labor and delivery (principal); O24.32 Unspecified pre-existing diabetes mellitus in childbirth; Z68.41 Body mass index [BMI] 40.0-44.9, adult; E11.9 Type 2 diabetes mellitus without complications; O99.214 Obesity complicating childbirth; E66.9 Obesity, unspecified; Z3A.38 38 weeks gestation of pregnancy; Z79.4 Long term (current) use of insulin; O99.013 Anemia complicating pregnancy, third trimester; Z37.0 Single live birth
CPT/HCPCS: 36415; 80048; 81003; 81015; 85025; 85610; 85730; 86593; 86850; 86900; 86901; 88307-TC; 90715

== ENCOUNTER 2022-07-02 04:01 | Day surgery (SDC) | payer OTHER ==
[2022-06-30 14:16] VITALS: BMI 39.8
[2022-07-02] MEDS ORDERED: MIDAZOLAM HCL 2 MG/2 ML SINGLE DOSE VIAL ONE (16:19)
[2022-07-02] MEDS ORDERED: PROPOFOL 20 ML ONE (16:39)
[2022-07-02] MEDS ORDERED: ACETAMINOPHEN INJECTION 100 ML IVPB ONE (16:46)
[2022-07-02] MEDS ORDERED: ceFAZolin SODIUM 1 GM VIAL IVPB ONE (17:10)
[2022-07-02] MEDS ORDERED: LIDOCAINE 1%/EPI 1:100000 (20 ML MULTI DOSE VIAL) INF ONE (17:44)
[2022-07-02] MEDS ORDERED: BUPIVACAINE HCL/PF 0.5% (5MG/ML) 10 ML VIAL IJ ONE (17:45)
[2022-07-02] MEDS ORDERED: MICROFIBRILLAR COLLAGEN 1 GM EACH TP ONE (18:59)
[2022-07-02] MEDS ORDERED: ACETAMINOPHEN 1000 MG/100 ML BAG IVPB ONE (19:53)
[2022-07-02] MEDS ORDERED: LACTATED RINGERS SOLUTION 1,000 ML IV SCH (20:00)
[2022-07-02] MEDS ORDERED: CALCITRIOL 0.25 MCG CAPSULE (FP) PO ONE (21:00)
[2022-07-02] MEDS ORDERED: CALCIUM CARBONATE 650 MG TABLET PO ONE (21:00)
[2022-07-03] MEDS ORDERED: ACETAMINOPHEN 1000 MG/100 ML BAG IVPB ONE (00:15)
[2022-07-03 01:55] VITALS: BP 136/77; PULSE 107; RESP 18; TEMP 98.3
== END 2022-07-03 02:10 | disposition home or self-care (01) ==
LOC: JASUSAT 04:01 → JASU-SURG 04:01 → J8W 23:30 → JASUSAT 07-03 02:10
PROVIDERS: ATTEND Surgery
PROC: 0GSR0ZZ Reposition Parathyroid Gland, Open Approach (ICD-10-PCS; 2022-07-02)
PROC: 0GTK0ZZ Resection of Thyroid Gland, Open Approach (ICD-10-PCS; principal; 2022-07-02 14:00)
DX: C73 Malignant neoplasm of thyroid gland (principal)
CPT/HCPCS: 81025; 82962; 88305-TC; 88307-TC; 88331-TC; 94760; C9803-CS; U0003; U0005